=== PATIENT | female | born 1955 | race Caucasian/White ===

== ENCOUNTER 2018-12-09 09:04 | Outpatient (CLI) | payer OTHER | END 2018-12-09 09:12 | disposition home or self-care (01) | LOC: SONOGRAMA 09:04 | DX: E04.1 Nontoxic single thyroid nodule (principal) ==

== ENCOUNTER 2021-05-01 08:10 | Outpatient (CLI) | payer OTHER | END 2021-05-01 08:15 | disposition home or self-care (01) | LOC: SONOGRAMA 08:10 | PROVIDERS: ATTEND Pathology Anatomic Pathology & Clinical Pathology | DX: D34 Benign neoplasm of thyroid gland (principal); E04.8 Other specified nontoxic goiter ==